=== PATIENT | male | born 1990 | race Caucasian/White ===

== ENCOUNTER → 2021-11-18 | Day surgery (SDC) | payer OTHER ==
[~2021-11-18] MED LIST: CYCLOBENZAPRINE30 MG PO; IBUPROFEN800 MG PO; MULTI-VITAMIN1 EACH PO; OMEPRAZOLE40 MG PO
== END | disposition home or self-care (01) ==
LOC: OR 05:28
DX: G56.03 Carpal tunnel syndrome, bilateral upper limbs (principal); K21.9 Gastro-esophageal reflux disease without esophagitis; E78.5 Hyperlipidemia, unspecified; M19.90 Unspecified osteoarthritis, unspecified site
CPT/HCPCS: J1100; J1885; J2001; J2250; J2405; J2704; J3010; J7120

== ENCOUNTER → 2022-01-25 | Outpatient (CLI) | payer OTHER | LOC: KOH-I 13:17 | DX: M79.672 Pain in left foot (principal); M79.671 Pain in right foot; M19.072 Primary osteoarthritis, left ankle and foot; M19.071 Primary osteoarthritis, right ankle and foot | CPT/HCPCS: 73610; 73630 ==